=== PATIENT | female | born 1990 | race Caucasian/White ===

== ENCOUNTER → 2017-05-01 | Outpatient (CLI) | payer OTHER | LOC: COL.RAD 10:10 | DX: R10.2 Pelvic and perineal pain (principal) ==

== ENCOUNTER → 2017-08-15 | Outpatient (CLI) | payer OTHER | LOC: COL.PUL 08-09 11:00 | DX: R06.02 Shortness of breath (principal) | CPT/HCPCS: J7674 ==

== ENCOUNTER 2017-09-07 09:05 | Day surgery (SDC) | payer OTHER ==
[~2017-09-07] VITALS: Ht 167.7 cm; Wt 124.5 kg
[2017-09-07] VITALS (11 sets, daily range): BP systolic 92–114; BP diastolic 40–65; PULSE 66–86; TEMP 98.2
[2017-09-07] MEDS ORDERED: RIFADIN300 MG PO (09:50)
[2017-09-07 10:13] LABS: HEMATOCRIT 41.6 % (37.0-47.0); HEMOGLOBIN 13.9 g/dl (12.5-16.0); MEAN CELL VOLUME 86 fl (80.0-100.0); MEAN CORPUSCULAR HEMOGLOBIN 29 pg (27.0-31.0); MEAN CORPUSCULAR HGB CONC 33 g/dl (33.0-37.0); MEAN PLATELET VOLUME 10.6 fl (7.4-10.4); PLATELET COUNT 169 K/mm3 (130-400); RED BLOOD COUNT 4.86 M/mm3 (4.10-5.30); REDCELL DISTRIBUTION WIDTH-CV 13.4 % (11.5-14.5); WHITE BLOOD COUNT 6.3 K/mm3 (4.8-10.8)
[2017-09-07 10:15] LABS: CALCIUM 9.2 mg/dL (8.4-10.2); CREATININE, serum 0.8 mg/dL (0.52-1.25)
[2017-09-07 10:47] LABS: POTASSIUM 4.3 mmol/L (3.4-5.0)
== END 2017-09-07 17:28 | disposition home or self-care (01) ==
LOC: COL.CAR 09:05
PROVIDERS: Internal Medicine Cardiovascular Disease
DX: R06.00 Dyspnea, unspecified (principal); Z90.49 Acquired absence of other specified parts of digestive tract
CPT/HCPCS: C1760; C1894; J2250; J3010; Q9967